=== PATIENT | female | born 1970 | race Caucasian/White ===

== ENCOUNTER → 2022-04-03 | Day surgery (SDC) | payer OTHER ==
[~2022-04-03] VITALS: Ht 157.5 cm; Wt 74.8 kg
[~2022-04-03] MED LIST: SINGULAIR10 MG PO
[2022-04-03 10:02] LABS: BASOPHIL 0.8 % (0-2); EOSINOPHIL 1.7 % (0-5); HCT 42.6 % (37.0-47.0); HGB 14.2 g/dl (12.5-16.0); MCH 32.3 pg (25.0-31.0); MCHC 33.3 g/dL (32.0-36.0); MCV 96.8 fL (78.0-100.0); MONOCYTE 5.9 % (0-12); MPV 8.6 fL (6.0-9.5); NEUTROPHIL 65.4 % (41-80); NRBC 0; PLT 271 K/uL (150-400); RDW 11.9 % (11.5-14.0); WBC 5.9 K/uL (4.0-10.5)
[2022-04-03 10:08] LABS: INR 0.94 (0.9-1.2); PROTHROMBIN TIME 12.3 SECONDS (11.9-13.9); PTT 26.4 SECONDS (24.9-34.6)
[2022-04-03 10:14] LABS: ALBUMIN 3.6 g/dL (3.4-5.0); BILIRUBIN - TOTAL 0.3 mg/dL (0.2-1.0); BUN/CREAT RATIO (CALC) 18.8 RATIO; CREATININE 0.8 mg/dL (0.51-0.95); GLOBULIN (CALCULATION) 4.1 g/dL; POTASSIUM 4.8 mmol/L (3.5-5.1); TOTAL PROTEIN 7.7 g/dL (6.4-8.2)
== END | disposition home or self-care (01) ==
LOC: FAS 08:43
PROVIDERS: Oral & Maxillofacial Surgery
DX: K09.0 Developmental odontogenic cysts (principal); K02.9 Dental caries, unspecified; K04.7 Periapical abscess without sinus; Z88.0 Allergy status to penicillin
CPT/HCPCS: 21049; D7140; D7210; D7230; D7310; 36415; 71045; 80053; 85025; 85610; 85730; 93005; J1100; J1170; J1885; J2250; J2405; J2704; J3010; J7120